=== PATIENT | female | born 1985 ===

== ENCOUNTER 2016-07-14 03:18 | Inpatient (IN) | payer OTHER ==
[~2016-07-14] VITALS: Ht 162.6 cm; Wt 86.2 kg
[2016-07-14 04:08] VITALS: BP 109/76
[2016-07-14 04:33] LABS: ABSOLUTE BASOPHIL COUNT 0 /CUMM (0.0-0.2); ABSOLUTE EOSINOPHIL COUNT 0.2 /CUMM (0.0-0.7); ABSOLUTE GRANULOCYTE CT 5.1 /CUMM (1.4-6.5); ABSOLUTE LYMPH COUNT 2.6 /CUMM (1.2-3.4); ABSOLUTE MONOCYTE COUNT 0.5 /CUMM (0.10-0.60); BASOPHIL % 0.3 % (0.0-2.0); EOSINOPHIL % 2.9 % (0-5); HEMATOCRIT 35.3 % (37-47); MEAN CORPUSCULAR HGB 30.8 PG (27.0-31.0); MEAN CORPUSCULAR HGB CONC 33.8 G/DL (33.0-37.0); MEAN CORPUSCULAR VOLUME 91.3 FL (81.0-99.0); MEAN PLATELET VOLUME 8.9 FL (7.4-10.4); PLATELET COUNT 193 /CUMM (130-400); RBC DISTRIBUTION WIDTH 13.3 % (11.5-14.5); RED BLOOD CELL CT 3.86 /CUMM (4.20-5.40); WHITE BLOOD CELL COUNT 8.5 /CUMM (4.8-10.8)
[2016-07-14] MEDS ORDERED: LAMICTAL200 M1 PO (08:51)
--- NOTE | 2016-07-14 09:11 | History & Physical ---
General Information and HPI MD Statement: I have seen and personally examined HILL CARRASQUILLO and documented this H&P. The patient is a 31 year old female at [39] weeks and [3] days gestation who presented with a chief complaint of [rom clear fluid wants to ]. 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 Denies: chills, fever. EENTM: Denies: double vision, visual changes. Cardiovascular: Denies: palpitations. Respiratory: Denies: cough, short of breath. GI: Denies: diarrhea, nausea, vomiting. Neurological/Psychological: Denies: anxiety, depressed. Exam & Diagnostic Data Last 24 Hrs of Vital Signs/I&O vss Vital Signs Date Time Temp Pulse Resp B/P B/P Pulse O2 O2 Flow FiO2 Mean Ox Delivery Rate 07/14 0408 109/76 Intake & Output 07/14 1600 07/14 0800 07/14 0000 Intake Total Output Total Balance Patient 190 lb Weight Obstetric Exam Wgt Gained During : 50# Pelvimetry: seems adequate Dilation (cm): 0 Effacement (%): 80 Station: -1 Membranes: SROM Fluid: clear Fundal Height (cm): 39 Multiple Gestation? No Contractions: rare Infant #1 - FHR Baseline: 145 Category: 1 Estimated Weight: 3800G Presentation: vtx Patient for Induction? No Physical Exam General Appearance Alert, Oriented X3, Cooperative, No Acute Distress Skin No Rashes HEENT Atraumatic Neck Supple Lungs Clear to Auscultation Abdomen Soft Neurological Normal Gait, Normal Speech, Strength at 5/5 X4 Ext, Normal Tone Extremities No Edema Labs Blood Type & Rh: A pos Antibody Screen: neg Hct/Hgb & Platelets #1: 38.3/13.1/189 Hct/Hgb & Platelets #2: 38.9/12.1/211 Rubella: imm VDRL #1: nr VDRL #2: nr HbsAg: nr HIV #1: nr HIV #2 nr 1 Hr P Group B Strep: neg Initial Ultrasound: 12/19/2015 Anatomy Ultrasound: 03/02/2016 posterior placenta Ultrasound for EFW: 06/14/2016 50%tile Genetic Testing: early screed negative Last 24 Hrs of Labs/Kuldip: Laboratory Tests 07/14/16 0415: CBC w Diff NO MAN DIFF REQ, RBC 3.86 L, MCV 91.3, MCH 30.8, RDW 13.3, MPV 8.9, Gran % 60.0, Lymphocytes % 31.1, Monocytes % 5.7, Eosinophils % 2.9, Basophils % 0.3, Absolute Granulocytes 5.1, Absolute Lymphocytes 2.6, Absolute Monocytes 0.5 , Absolute Eosinophils 0.2, Absolute Basophils 0, PUBS MCHC 33.8 07/14/16 0330: Membrane Rupture POSITIVE, Urinalysis MOD H, Urine Color DANIEL, Urine Clarity HAZY H, Urine pH 6.5, Ur Specific [place] 1.010, Urine Protein NEG, Urine Ketones NEG, Urine Nitrite NEG, Urine Bilirubin NEG, Urine Urobilinogen 0.2, Ur Leukocyte Esterase TRACE H, Ur Microscopic SEDIMENT EXAMINED, Urine RBC 15-25 H, Urine WBC 3-5 H, Ur Epithelial Cells MOD H, Urine Bacteria FEW H, Urine Mucus FEW, Urine Hemoglobin LARGE H, Urine Glucose NEG Assessment/Plan Assessment/Plan: SROM clear at term candidate consent on chart Seizure disorder on lamotrigine 300mg BID GBS negative H/O c/s 35 weeks for placente previa complicated by broad ligament hematoma which resolved spontaniously As Ranked By This Provider Problem List: 1. Core Measures/Miscellaneous Venous Thromboembolism VTE Risk Factors: / VTE Contraindications: No Contraindications VTE Diagnosis: No Beta Storm Is Beta Storm a Home Med? No Antibiotics Is Patient on Antibiotics? No
--- NOTE | 2016-07-14 15:00 | PN- OBGYN ---
Surgical Brief Attending Note Brief Attending Note: Doing well, interested still in Afebrile VSS Abdomen benign soft uterus nontender no palp contractions monitor FHR 120" cat I no palp contxns CX 1.5 cm 80% mid position soft Stable HD#1- prior C/S @ 35 wks for placenta previa and bleeding- post op had a large LT Broad ligament hematoma now > 12 hrs SROM and no onset of spontaneous labor as of yet. Reassuring FHR @ present options of R C/S vs IV pitocin induction discussed in detail protocal for pitocin monitoring w/ discussed - pt accepts and agrees risks of uterine rupture discussed- possible damage to her baby if uterine rupture occurred Consent form for signed and on the chart. Plan is for pitocin induction Estuardo Christian MD
--- NOTE | 2016-07-14 17:22 | PN- OBGYN ---
Surgical Brief Attending Note Brief Attending Note: Pt uncomfortable with her contractions wants epidural Pitocin @ 4 mu contractions Q 3 minutes CX 2 cm 80% 0 station FHR Cat 1 attempt -Small progress in labor- pitocin induction of labor @ 16 hrs of SROM Reassuring FHR Plan epidural careful FHR monitoring Estuardo Christian MD
--- NOTE | 2016-07-14 23:01 | PN- Att Addend ---
Attending Addendum Attending Brief Note Noted some vaginal pressure Recheck by RN 9+ cm 0 to + 1 station Pitocin @ 7 contractions @ 3 in 10 minutes FHR 130's Cat 1 ashley by MD torres lip @ 22:31 AROM clear fluid Progress in labor Follow closely anticipate WENCESLAO Christian MD
--- NOTE | 2016-07-15 00:43 | Labor & Delivery Summary ---
Delivery Summary Vaginal Delivery: Vaginal: spontaneous : Indication: PRIOR PREG DELIVERED @ 35 WEEKD- PLACENTA PREVIA- BLEEDING NECESSITATED HER DELIVERY. HAD A LARGE LT BROAD LIGAMENT HEMATOME THAT RESOVED AFTER 4 MONTHS OBSERVATION Episiotomy/Lacerations: Episiotomy/Lacerations: LACERATION Type: MIDLINE Repair: 2 - O VICRYL RT PERIURETHRAL ALSO CLOSED W/ SINGLE STITCH Placenta: Placenta: spontanteous, normal, 3 vessel, SHORT CORD Anesthesia: EPIDURAL Cord PH Value: N/A Baby's Weight: 8# 4OZ BABY BOY -TRACI Apgars - 1 Min: 9 Apgars - 5 Min: 9 Additional Comments: PT PROGRESSED TO FULLY AND +2 / +3 STATION @ 23:05. SHE SOON BEGAN PUSHING. LV MALE INFANT OVER 2ND DEGREE LACERATION. PLACENTA DELIVERED INTACT NL CONFIGURATION 3 VC SECOND DEGREE LACERATION REPAIRED IN LAYERS. RT DARYL-URETHRAL REPAIRED IN LAYERS VAGINAL EXAM S/P PERINEAL REPAIR- INTACT BUT BOGGY LOW UTERINE SEGMENT - NO CLOT COLLLECTION IN THE UPPER VAGINA OR LOW UTERINE SEGMENT PT GIVEN IV PITOCIN, IM METHERGINE EBL 350 ML TRACI WARNER MD
--- NOTE | 2016-07-15 11:43 | PN- Post Delivery/GYN ---
Subjective Subjective: Doing well wants circ for her son- Happy with her experience Review of Systems: Neg for Cardiac Pulmonary GI complaints Objective Last 24 Hrs of Vital Signs/I&O Afebrile VSS Physical Exam General Appearance Alert, Oriented X3, Cooperative, No Acute Distress Cardiovascular Regular Rate Lungs Normal Air Movement Abdomen Normal Bowel Sounds, Soft, No Tenderness, No Hepatospenomegaly, Fundus firm idline 2 FB below umbilicus nontender Neurological Normal Gait, Normal Speech Extremities No Tenderness/Swelling Pelvic (FEMALE) Appearance Normal, avge lochia Current Medications: Current Medications Sig/Nyasia Start time Last Medication Dose Route Stop Time Status Admin Acetaminophen 650 MG Q4P PRN 07/15 0045 AC PO Bupivacaine HCl 10 ML ONCE ONE 07/15 004 DC 07/15 SC 07/15 0046 0104 Bupivacaine HCl 10 ML .STK-MED ONE 07/14 2316 DC EPID 07/14 2318 Butorphanol Tartrate 1 MG Q4P PRN 07/14 0415 AC IV Butorphanol Tartrate 1 MG Q4P PRN 07/14 0415 AC IM Docusate Sodium 100 MG BID PRN 07/15 004 AC PO Hydroxyzine HCl 100 MG AT BEDTIME NEED.. 07/15 0045 AC PO Ibuprofen 800 MG Q6P PRN 07/15 0045 AC 07/15 PO 0601 Ketorolac 30 MG ONCE ONE 07/15 0045 DC 07/14 Tromethamine IV 07/15 0046 2353 Ketorolac 30 MG .STK-MED ONE 07/147 DC Tromethamine IM 07/14 2318 Lactated Ringer's 1,000 ML Q8H 07/14 0415 AC IV Lamotrigine 300 MG BID 07/14 1700 AC 07/15 PO 0605 Magnesium Hydroxide 30 ML DAILY PRN 07/15 0045 AC PO Methylergonovine 0.2 MG STAT STA 07/15 0032 DC 07/15 Maleate IM 07/15 0033 0025 Oxycodone/ 1 TAB Q3P PRN 07/15 0045 AC Acetaminophen PO Oxytocin 30 UNITS Q5H 07/15 0045 DC 07/14 Lactated Ringer's 1,000 ML IV 07/15 0544 2350 Oxytocin 10 UNITS .STK-MED ONE 07/14 2332 DC IM 07/14 2333 Oxytocin 20 UNITS .STK-MED ONE 07/14 2315 DC IV 07/14 2316 Oxytocin 30 UNITS PER PROTOCL 07/14 1500 AC 07/14 Lactated Ringer's 500 ML IV 07/15 1459 1430 Oxytocin 30 UNITS PER PROTOCL 07/14 1400 DC Lactated Ringer's 500 ML IV Last 24 Hrs of Labs/Kuldip: H/H 11.35 Microbiology 07/15 0830 URINE ROUT: Urine Culture - RECD Assessment/Plan Assessment/Plan STABLE PPD #1 ROUTINE PP CARE CIRC FOR THEIR SON TODAY Estuardo WARNER MD
[2016-07-16] MEDS ORDERED: IBUPROFEN800 M1 PO (09:08)
--- NOTE | 2016-07-16 09:11 | PN- OBGYN ---
Surgical Brief Attending Note Brief Attending Note: PPD#2 pt is doing well, ambulting, tolerate diet, void without difficulties. PE: VSS CV RRR Lungs CTA B/L Abdomen: soft, nontender,uterus firm, fundus below umbilicus, mild lochia Ext: DCT (-) A/P: 31 yo, s/p , PPD#2 1. encourage ambulation 2. pain management as needed 3. will d/c home, f/u in office in 2 wks and 6 wks
[2016-07-16 09:18] LABS: ABSOLUTE BASOPHIL COUNT 0 /CUMM (0.0-0.2); ABSOLUTE EOSINOPHIL COUNT 0.2 /CUMM (0.0-0.7); ABSOLUTE GRANULOCYTE CT 5.5 /CUMM (1.4-6.5); ABSOLUTE LYMPH COUNT 3.2 /CUMM (1.2-3.4); ABSOLUTE MONOCYTE COUNT 0.6 /CUMM (0.10-0.60); BASOPHIL % 0.4 % (0.0-2.0); EOSINOPHIL % 2.2 % (0-5); GRANULOCYTE % 57.2 % (42.2-75.2); HEMATOCRIT 36.7 % (37-47); MEAN CORPUSCULAR HGB 30.8 PG (27.0-31.0); MEAN CORPUSCULAR HGB CONC 33.1 G/DL (33.0-37.0); MEAN CORPUSCULAR VOLUME 92.9 FL (81.0-99.0); MEAN PLATELET VOLUME 9.4 FL (7.4-10.4); PLATELET COUNT 177 /CUMM (130-400); RBC DISTRIBUTION WIDTH 13.2 % (11.5-14.5); RED BLOOD CELL CT 3.95 /CUMM (4.20-5.40); WHITE BLOOD CELL COUNT 9.5 /CUMM (4.8-10.8)
== END 2016-07-16 11:24 | DRG 775 ==
LOC: CBCO 03:18 → GNO 03:56
PROVIDERS: ADMIT Obstetrics & Gynecology
PROC: 10E0XZZ Delivery of Products of Conception, External Approach (ICD-10-PCS; principal; 2016-07-14)
PROC: 0KQM0ZZ Repair Perineum Muscle, Open Approach (ICD-10-PCS; principal; 2016-07-14)
PROC: 0UQMXZZ Repair Vulva, External Approach (ICD-10-PCS; principal; 2016-07-14)
PROC: 3E033VJ Introduction of Other Hormone into Peripheral Vein, Percutaneous Approach (ICD-10-PCS; 2016-07-14)
DX: O34.211 Maternal care for low transverse scar from previous cesarean delivery (principal); R56.9 Unspecified convulsions; N85.8 Other specified noninflammatory disorders of uterus; O70.1 Second degree perineal laceration during delivery; Z3A.39 39 weeks gestation of pregnancy; O99.89 Other specified diseases and conditions complicating pregnancy, childbirth and the puerperium; Z37.0 Single live birth; O71.82 Other specified trauma to perineum and vulva
CPT/HCPCS: GNOP; GNOS; 81001; 84112; 87086; J1885; J7120